=== PATIENT | male | born 1965 | race Caucasian/White ===

== ENCOUNTER 2019-01-19 23:06 | Emergency (ER) | payer BC ==
[2019-01-19] MEDS ORDERED: Sodium Chloride 0.9% 10 ML Syringe FLUSH PRN (23:07)
[2019-01-19] MEDS ORDERED: Aspirin 81 MG Tab.Chew PO ONE (23:08)
[2019-01-19] MEDS ORDERED: HYDROmorphone 1 MG/ML Syringe IVPUSH ONE ×4 (23:12→23:34)
[2019-01-19] MEDS ORDERED: Ondansetron 4 MG/2 ML SDV IVPUSH ONE ×2 (23:12→23:36)
[2019-01-19] MEDS ORDERED: Lactated Ringers 1,000 ML IV SCH (23:15)
--- NOTE | 2019-01-19 23:19 | EDM.PDOC ---
ED HPI GENERAL MEDICAL PROBLEM - General Chief Complaint: Chest Pain Stated Complaint: CHEST PAIN, ABD PAIN Time Seen by Provider: 01/19/19 23:10 Source of Information: Reports: Patient, Old Records History Limitations: Reports: No Limitations - History of Present Illness INITIAL COMMENTS - FREE TEXT/NARRATIVE: 53 yo male with a hx of gastric bypass presents with band-like pain across his lower chest/upper abdomen associated with nausea, but no vomiting. He feels mildly SOB. Has had mild pain like this for a couple weeks, but tonight is much worse. He has not to date sought medical care for this. He has also had his gallbladder surgically removed. Here with his . He has chronic back issues and was attributing his sx's to his back until tonight. Onset: Gradual, Other (over a couple weeks with an abrupt worsening tonight. ) Duration: Week(s): (2, although much worse tonight.), Constant Location: Reports: Chest (lower), Abdomen (upper) Quality: Reports: Pressure Severity: Severe Improves with: Reports: None Worsens with: Reports: None Context: Reports: Other (See HPI) Associated Symptoms: Reports: Chest Pain (lower chest tightness), Nausea/ Vomiting (no vomiting), Shortness of Breath (mild). 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 Denies: Wheezing, Pleuritic Chest Pain, Cough, Sputum, Hemoptysis Cardiovascular: Reports: Chest Pain (lower chest tightness), Edema (L leg with mild edema below the knee.) Endocrine: Reports: No Symptoms GI/Abdominal: Reports: Abdominal Pain (epigastric pressure), Nausea. Denies: Black Stool, Bloody Stool, Constipation, Diarrhea, Decreased Appetite, Distension, Flatus, Hematemesis, Hematochezia, Melena, Vomiting : Reports: No Symptoms Musculoskeletal: Reports: No Symptoms Skin: Reports: No Symptoms Neurological: Reports: No Symptoms Psychiatric: Reports: No Symptoms ED EXAM, GI/ABD - Physical Exam Exam: See Below Exam Limited By: No Limitations General Appearance: Alert, WD/WN, Moderate Distress, Obese Eyes: Bilateral: Normal Appearance Ears: Normal External Exam, Normal Canal, Hearing Grossly Normal Nose: Normal Inspection, No Blood Throat/Mouth: Normal Inspection, Normal Lips, Normal Oropharynx, Normal Voice, No Airway Compromise Head: Atraumatic, Normocephalic Neck: Normal Inspection Respiratory/Chest: No Respiratory Distress, Lungs Clear, Normal Breath Sounds, No Accessory Muscle Use GI/Abdominal Exam: Soft, Tender (epigastrium), Abnormal Bowel Sounds (decreased) , Other (obese with a larger vertical midline surgical scar. ). No: Normal Bowel Sounds, Non-Tender, No Distention, Distended, Guarding, Rigid, Rebound Extremities: Normal Inspection, Normal Range of Motion, Non-Tender Neurological: Alert, Oriented, CN II-XII Intact, Normal Cognition, No Motor/ Sensory Deficits Psychiatric: Normal Affect, Normal Mood Skin Exam: Warm, Dry, Intact, Normal Color, No Rash, Other (large scar vertically in midline of abd from surgery in remote past. ) EKG INTERPRETATION EKG Date: 01/19/19 Time: 23:05 Rhythm: NSR Rate (Beats/Min): 72 [place]: RAD-Right [place] Deviation P-Wave: Present QRS: Normal ST-T: Normal QT: Normal Comparison: NA - No Prior EKG EKG Interpretation Comments: No acute changes. Course - Vital Signs Text/Narrative:: Dr. Harman Hernandez called @ 1:22a Last Recorded V/S: Last Vital Signs Temp 35.9 C 01/19/19 23:18 Pulse 67 01/20/19 00:49 Resp 12 01/20/19 00:49 BP 127/77 01/20/19 00:49 Pulse Ox 99 01/20/19 00:49 - Orders/Labs/Meds Orders: Active Orders 24 hr Category Date Time Status Cardiac Monitoring [RC] .As Directed Care 01/19/19 23:06 Active EKG Documentation Completion [RC] ASDIRECTED Care 01/19/19 23:06 Active UA W/MICROSCOPIC [URIN] Stat Lab 01/19/19 23:07 Ordered Lactated Ringers [Ringers, Lactated] 1,000 ml Med 01/19/19 23:15 Active IV ASDIRECTED Sodium Chloride 0.9% [Saline Flush] Med 01/19/19 23:07 Active 10 ml FLUSH ASDIRECTED PRN Saline Lock Insert [OM.PC] Routine Oth 01/19/19 23:07 Ordered EKG 12 Lead [EK] Routine Ther 01/19/19 23:06 Ordered Medication Orders Lactated Ringer's (Ringers, Lactated) 1,000 mls @ 500 mls/hr IV ASDIRECTED GREGORY Last Admin: 01/19/19 23:17 Dose: 500 mls/hr Sodium Chloride (Saline Flush) 10 ml FLUSH ASDIRECTED PRN PRN Reason: Keep Vein Open Last Admin: 01/19/19 23:18 Dose: 10 ml Labs: Laboratory Tests 01/19/19 01/19/19 01/19/19 Range/Units 23:15 23:15 23:15 WBC 6.7 (4.5-11.0) K/uL RBC 3.97 L (4.30-5.90) M/uL Hgb 11.7 L D (12.0-15.0) g/dL Hct 36.8 L (40.0-54.0) % MCV 93 (80-98) fL MCH 30 (27-31) pg MCHC 32 (32-36) % Plt Count 268 (150-400) K/uL Sodium 139 L (140-148) mmol/L Potassium 4.5 (3.6-5.2) mmol/L Chloride 104 (100-108) mmol/L Carbon Dioxide 26 (21-32) mmol/L Anion Gap 13.5 (5.0-14.0) mmol/L BUN 10 (7-18) mg/dL Creatinine 0.9 (0.8-1.3) mg/dL Est Cr Clr Drug Dosing 108.51 mL/min Estimated GFR (MDRD) > 60 (>60) Glucose 102 (74-106) mg/dL Calcium 9.5 (8.5-10.1) mg/dL Troponin I < 0.017 (0.000-0.056) ng/mL Amylase (25-115) U/L Lipase (73-393) U/L 01/19/19 01/20/19 Range/Units 23:15 00:01 WBC (4.5-11.0) K/uL RBC (4.30-5.90) M/uL Hgb (12.0-15.0) g/dL Hct (40.0-54.0) % MCV (80-98) fL MCH (27-31) pg MCHC (32-36) % Plt Count (150-400) K/uL Sodium (140-148) mmol/L Potassium (3.6-5.2) mmol/L Chloride (100-108) mmol/L Carbon Dioxide (21-32) mmol/L Anion Gap (5.0-14.0) mmol/L BUN (7-18) mg/dL Creatinine (0.8-1.3) mg/dL Est Cr Clr Drug Dosing mL/min Estimated GFR (MDRD) (>60) Glucose (74-106) mg/dL Calcium (8.5-10.1) mg/dL Troponin I (0.000-0.056) ng/mL Amylase 53 (25-115) U/L Lipase 220 (73-393) U/L Meds: Medications Generic Name Dose Route Start Last Admin Trade Name Freq PRN Reason Stop Dose Admin Lactated Ringer's 1,000 mls @ 500 mls/hr 01/19/19 23:15 01/19/19 23:17 Ringers, Lactated IV 500 mls/hr ASDIRECTED GREGORY Administration Sodium Chloride 10 ml 01/19/19 23:07 01/19/19 23:18 Saline Flush FLUSH 10 ml ASDIRECTED PRN Administration Keep Vein Open Discontinued Medications Generic Name Dose Route Start Last Admin Trade Name Freq PRN Reason Stop Dose Admin Aspirin 324 mg 01/19/19 23:08 Aspirin PO 01/19/19 23:09 ONETIME ONE Famotidine 20 mg 01/20/19 00:55 01/20/19 01:05 Pepcid IVPUSH 01/20/19 00:56 20 mg ONETIME ONE Administration Hydromorphone HCl 1 mg 01/19/19 23:12 01/19/19 23:17 Dilaudid IVPUSH 01/19/19 23:13 1 mg ONETIME ONE Administration Hydromorphone HCl 1 mg 01/19/19 23:25 Dilaudid IVPUSH 01/19/19 23:26 ONETIME ONE Hydromorphone HCl 2 mg 01/19/19 23:26 01/19/19 23:29 Dilaudid IVPUSH 01/19/19 23:27 2 mg ONETIME ONE Administration Hydromorphone HCl 1 mg 01/19/19 23:34 01/19/19 23:47 Dilaudid IVPUSH 01/19/19 23:35 1 mg ONETIME ONE Administration Sodium Chloride 85 mls @ 4 mls/sec 01/20/19 00:01 01/20/19 00:13 Normal Saline IV 01/20/19 00:02 4 mls/sec ASDIRECTED STA Administration Iopamidol 150 ml 01/20/19 00:01 01/20/19 00:13 Isovue-300 (61%) IV 01/20/19 00:02 150 ml . DIRECTED STA Administration Ondansetron HCl 4 mg 01/19/19 23:12 01/19/19 23:17 Zofran IVPUSH 01/19/19 23:13 4 mg ONETIME ONE Administration Ondansetron HCl 4 mg 01/19/19 23:36 01/19/19 23:47 Zofran IVPUSH 01/19/19 23:37 4 mg ONETIME ONE Administration - Radiology Interpretation Free Text/Narrative:: CT abd/pelvis with IV contrast-duodenitis vs. early pancreatitis CT Results Date: 01/19/19 Departure - Departure Time of Disposition: 01:30 Disposition: Refer to Observation Condition: Fair Clinical Impression: Epigastric abdominal pain - Discharge Information *PRESCRIPTION DRUG MONITORING PROGRAM REVIEWED*: No *COPY OF PRESCRIPTION DRUG MONITORING REPORT IN PATIENT ELVA: No Referrals: Art Goldberg MD [Primary Care Provider] - Forms: ED Department Discharge - My Orders Last 24 Hours: My Active Orders 01/19/19 23:06 Cardiac Monitoring [RC] .As Directed EKG Documentation Completion [RC] ASDIRECTED EKG 12 Lead [EK] Routine 01/19/19 23:07 UA W/MICROSCOPIC [URIN] Stat Sodium Chloride 0.9% [Saline Flush] 10 ml FLUSH ASDIRECTED PRN Saline Lock Insert [OM.PC] Routine 01/19/19 23:15 Lactated Ringers [Ringers, Lactated] 1,000 ml IV ASDIRECTED - Assessment/Plan Last 24 Hours: My Active Orders 01/19/19 23:06 Cardiac Monitoring [RC] .As Directed EKG Documentation Completion [RC] ASDIRECTED EKG 12 Lead [EK] Routine 01/19/19 23:07 UA W/MICROSCOPIC [URIN] Stat Sodium Chloride 0.9% [Saline Flush] 10 ml FLUSH ASDIRECTED PRN Saline Lock Insert [OM.PC] Routine 01/19/19 23:15 Lactated Ringers [Ringers, Lactated] 1,000 ml IV ASDIRECTED
[2019-01-20] MEDS ORDERED: Iopamidol 612 MG/ML 150 ML Bottle IV STA (00:01)
--- NOTE | 2019-01-20 00:53 | CRLCT ---
INDICATION: For abdominal pain. History of Perla-en-Y TECHNIQUE: CT abdomen and pelvis acquired with IV contrast. COMPARISON: FINDINGS: Lower chest: Unremarkable. Liver: Unremarkable. Spleen: Unremarkable. Pancreas: Small amount of fat stranding adjacent to the pancreatic head. Correlate with abnormal amylase and lipase clinically for pancreatitis.. Gallbladder and bile ducts: Unremarkable. Kidneys: Unremarkable. Adrenal glands: Unremarkable. GI tract: History of Perla-en-Y. Thickening of the 2nd portion the duodenum. Findings may related to duodenitis versus adjacent pancreatitis. Appendix is normal. Vascular structures: Unremarkable. Lymph nodes: Unremarkable. Miscellaneous: Unremarkable. No free air or significant free fluid. Pelvic Organs: Unremarkable. Bones: Unremarkable for age. IMPRESSION: Small amount of fluid and fat stranding adjacent to the pancreatic head. Correlate with amylase and lipase for pancreatitis. Mild thickening of the adjacent 2nd portion the duodenum which may be related to duodenitis or adjacent pancreatitis. Dictated by Art Acosta MD @ 01/20/2019 12:51:51 AM Please note that all CT scans at this facility use dose modulation, iterative reconstruction, and/or weight-based dosing when appropriate to reduce radiation dose to as low as reasonably achievable. Dictated by: Art Acosta MD @ 01/20/2019 00:51:57 (Electronically Signed)
[2019-01-20] MEDS ORDERED: Famotidine 20 MG/2 ML SDV IVPUSH ONE (00:55)
[2019-01-20] MEDS ORDERED: Ondansetron 4 MG/2 ML SDV IVPUSH PRN (02:49)
[2019-01-20] MEDS ORDERED: HYDROmorphone 1 MG/ML Syringe IVPUSH PRN (02:49)
[2019-01-20] MEDS: Dextrose 5%-Lactated Ringers 1,000 ML IV SCH ×2 (03:00→09:51)
[2019-01-20] MEDS ORDERED: fentaNYL 100 MCG/2 ML SDV ONE (08:03)
[2019-01-20] MEDS ORDERED: Propofol 200 MG/20 ML SDV ONE (08:03)
[2019-01-20] MEDS ORDERED: Midazolam 1 MG/ML 2 ML SDV ONE (08:03)
--- NOTE | 2019-01-20 08:18 | PCM.HP ---
H&P History of Present Illness - General Date of Service: 01/20/19 Admit Problem/Dx: Admission Diagnosis/Problem Admission Diagnosis/Problem Abdominal pain Source of Information: Patient History Limitations: Reports: No Limitations - History of Present Illness Initial Comments - Free Text/Narative: Pt states he has been having upper abdominal pain for roughly 2 weeks and last night it suddenly worsened to 9/10 pain. He describes the pain as a squeezing that wraps around his upper abdomen. He does mention that the pain did radiate to his left shoulder and both his arms felt heavy. Mildly SOB due to pain with inspiration. Nauseated but no vomiting. Nothing made the pain better or worse. Was given Aspirin, Pepcid, Dilaudid, Zofran in the ED. Pt states pain is now well controlled at a 2/10. History of HTN, cholecystectomy, gastric bypass, back surgery. 2-3 beers daily. Denies any tobacco, or illicit drug use. States strong family history of cardiac disease. Onset of Symptoms: Reports: Sudden Symptom Onset Date: 01/19/19 (Pt has had mild to moderate pain but had acute exacerbation last night) Duration of Symptoms: Reports: Constant, Getting Worse Location: Reports: Chest, Abdomen, Radiates to (left shoulder) Quality: Reports: Pressure Severity: Severe Improves with: Reports: None Worsens with: Reports: Breathing Context: Reports: Other Associated Symptoms: Reports: Chest Pain (chest pressure), Nausea/Vomiting (no vomiting), Shortness of Breath (increase pain with inhalation ), Other (denies diaphoresis, palpitations, fever/chills, cough, ) Chest Pain Score (Numeric/FACES): 2 - Related Data Allergies/Adverse Reactions: Allergies Allergy/AdvReac Type Severity Reaction Status Date / Time No Known Allergies Allergy Verified 01/20/19 02:22 Home Medications: Home Meds Metaxalone 800 mg PO TID 01/19/19 [History] diazePAM [Valium] 10 mg PO Q4H 01/19/19 [History] Past Medical History HEENT History: Reports: Impaired Vision Cardiovascular History: Reports: Hypertension Respiratory History: Reports: Sleep Apnea Gastrointestinal History: Reports: None Musculoskeletal History: Reports: None Other Musculoskeletal History: DJD Neurological History: Reports: Migraines - Past Surgical History HEENT Surgical History: Reports: None Cardiovascular Surgical History: Reports: None Respiratory Surgical History: Reports: None GI Surgical History: Reports: Bariatric Procedure, Cholecystectomy Other GI Surgeries/Procedures: RNY 20 years ago Neurological Surgical History: Reports: Other (See Below) Other Neurological Surgeries/Procedures: disc removal Musculoskeletal Surgical History: Reports: Other (See Below) Other Musculoskeletal Surgeries/Procedures:: Back surgery Social & Family History - Tobacco Use Smoking Status *Q: Former Smoker Used Tobacco, but Quit: Yes Month/Year Tobacco Last Used: 11/1999 Second Hand Smoke Exposure: No - Caffeine Use Caffeine Use: Reports: None - Alcohol Use Days Per Week of Alcohol Use: 7 Number of Drinks Per Day: 2 Total Drinks Per Week: 14 Date of Last Drink: 01/19/19 Time of Last Drink: 23:00 - Recreational Drug Use Recreational Drug Use: No H&P Review of Systems - Review of Systems: Review Of Systems: See Below General: Reports: No Symptoms HEENT: Reports: No Symptoms Pulmonary: Reports: Shortness of Breath (mild, pain with inspiration ) Cardiovascular: Reports: Chest Pain (sternal, lower chest pain that ) Gastrointestinal: Reports: Abdominal Pain, Nausea. Denies: Bloody Stool, Constipation, Diarrhea, Distension, Vomiting Genitourinary: Reports: No Symptoms Musculoskeletal: Reports: No Symptoms Skin: Reports: No Symptoms Psychiatric: Reports: No Symptoms Neurological: Reports: No Symptoms Hematologic/Lymphatic: Reports: No Symptoms Exam - Exam Exam: Not Obtained (Pt left for EGD) - Vital Signs Vital Signs: Last Vital Signs Temp 35.8 C 01/20/19 07:32 Pulse 57 L 01/20/19 07:32 Resp 16 01/20/19 07:32 BP 119/74 01/20/19 07:32 Pulse Ox 98 01/20/19 07:32 Weight: 145.15 kg - Exam General: Alert, Oriented, Cooperative Physical Exam Comments:: Not done; pt left for EGD - Patient Data Lab Results Last 24 hrs: Laboratory Results - last 24 hr 01/19/19 01/19/19 01/19/19 Range/Units 23:15 23:15 23:15 WBC 6.7 (4.5-11.0) K/uL RBC 3.97 L (4.30-5.90) M/uL Hgb 11.7 L D (12.0-15.0) g/dL Hct 36.8 L (40.0-54.0) % MCV 93 (80-98) fL MCH 30 (27-31) pg MCHC 32 (32-36) % Plt Count 268 (150-400) K/uL Sodium 139 L (140-148) mmol/L Potassium 4.5 (3.6-5.2) mmol/L Chloride 104 (100-108) mmol/L Carbon Dioxide 26 (21-32) mmol/L Anion Gap 13.5 (5.0-14.0) mmol/L BUN 10 (7-18) mg/dL Creatinine 0.9 (0.8-1.3) mg/dL Est Cr Clr Drug Dosing 108.51 mL/min Estimated GFR (MDRD) > 60 (>60) Glucose 102 (74-106) mg/dL Calcium 9.5 (8.5-10.1) mg/dL Phosphorus (2.5-4.9) mg/dL Magnesium (1.8-2.4) mg/dL Total Bilirubin (0.2-1.0) mg/dL AST (15-37) U/L ALT (12-78) U/L Alkaline Phosphatase (46-116) U/L Troponin I < 0.017 (0.000-0.056) ng/mL Total Protein (6.4-8.2) g/dL Albumin (3.4-5.0) g/dL Globulin (2.3-3.5) g/dL Albumin/Globulin Ratio (1.2-2.2) Amylase (25-115) U/L Lipase (73-393) U/L Urine Color Urine Appearance Urine pH (4.5-8.0) Ur Specific [place] (1.008-1.030) Urine Protein (NEGATIVE) mg/dL Urine Glucose (UA) (NEGATIVE) mg/dL Urine Ketones (NEGATIVE) mg/dL Urine Occult Blood (NEGATIVE) Urine Nitrite (NEGAITVE) Urine Bilirubin (NEGATIVE) Urine Urobilinogen (NORMAL) mg/dL Ur Leukocyte Esterase (NEGATIVE) Urine RBC (0-5) Urine WBC (0-5) Ur Epithelial Cells Amorphous Sediment Urine Bacteria Urine Mucus 01/19/19 01/20/19 01/20/19 Range/Units 23:15 00:01 02:17 WBC (4.5-11.0) K/uL RBC (4.30-5.90) M/uL Hgb (12.0-15.0) g/dL Hct (40.0-54.0) % MCV (80-98) fL MCH (27-31) pg MCHC (32-36) % Plt Count (150-400) K/uL Sodium (140-148) mmol/L Potassium (3.6-5.2) mmol/L Chloride (100-108) mmol/L Carbon Dioxide (21-32) mmol/L Anion Gap (5.0-14.0) mmol/L BUN (7-18) mg/dL Creatinine (0.8-1.3) mg/dL Est Cr Clr Drug Dosing mL/min Estimated GFR (MDRD) (>60) Glucose (74-106) mg/dL Calcium (8.5-10.1) mg/dL Phosphorus (2.5-4.9) mg/dL Magnesium (1.8-2.4) mg/dL Total Bilirubin (0.2-1.0) mg/dL AST (15-37) U/L ALT (12-78) U/L Alkaline Phosphatase (46-116) U/L Troponin I (0.000-0.056) ng/mL Total Protein (6.4-8.2) g/dL Albumin (3.4-5.0) g/dL Globulin (2.3-3.5) g/dL Albumin/Globulin Ratio (1.2-2.2) Amylase 53 (25-115) U/L Lipase 220 (73-393) U/L Urine Color Yellow Urine Appearance Clear Urine pH 5.0 (4.5-8.0) Ur Specific [place] 1.015 (1.008-1.030) Urine Protein Negative (NEGATIVE) mg/dL Urine Glucose (UA) Normal (NEGATIVE) mg/dL Urine Ketones Negative (NEGATIVE) mg/dL Urine Occult Blood Negative (NEGATIVE) Urine Nitrite Negative (NEGAITVE) Urine Bilirubin Negative (NEGATIVE) Urine Urobilinogen Normal (NORMAL) mg/dL Ur Leukocyte Esterase Negative (NEGATIVE) Urine RBC Not seen (0-5) Urine WBC 0-5 (0-5) Ur Epithelial Cells Rare Amorphous Sediment Not seen Urine Bacteria Not seen Urine Mucus Not seen 01/20/19 01/20/19 01/20/19 Range/Units 07:11 07:11 07:11 WBC 4.7 (4.5-11.0) K/uL RBC 3.52 L (4.30-5.90) M/uL Hgb 10.3 L (12.0-15.0) g/dL Hct 33.1 L (40.0-54.0) % MCV 94 (80-98) fL MCH 29 (27-31) pg MCHC 31 L (32-36) % Plt Count 217 (150-400) K/uL Sodium 140 (140-148) mmol/L Potassium 4.2 (3.6-5.2) mmol/L Chloride 106 (100-108) mmol/L Carbon Dioxide 29 (21-32) mmol/L Anion Gap 5.0 (5.0-14.0) mmol/L BUN 8 (7-18) mg/dL Creatinine 0.8 (0.8-1.3) mg/dL Est Cr Clr Drug Dosing 123.83 mL/min Estimated GFR (MDRD) > 60 (>60) Glucose 107 H (74-106) mg/dL Calcium 8.4 L (8.5-10.1) mg/dL Phosphorus 3.7 (2.5-4.9) mg/dL Magnesium 2.0 (1.8-2.4) mg/dL Total Bilirubin 0.2 (0.2-1.0) mg/dL AST 17 (15-37) U/L ALT 17 (12-78) U/L Alkaline Phosphatase 56 (46-116) U/L Troponin I (0.000-0.056) ng/mL Total Protein 5.6 L (6.4-8.2) g/dL Albumin 2.8 L (3.4-5.0) g/dL Globulin 2.8 (2.3-3.5) g/dL Albumin/Globulin Ratio 1.0 L (1.2-2.2) Amylase 43 (25-115) U/L Lipase 136 (73-393) U/L Urine Color Urine Appearance Urine pH (4.5-8.0) Ur Specific [place] (1.008-1.030) Urine Protein (NEGATIVE) mg/dL Urine Glucose (UA) (NEGATIVE) mg/dL Urine Ketones (NEGATIVE) mg/dL Urine Occult Blood (NEGATIVE) Urine Nitrite (NEGAITVE) Urine Bilirubin (NEGATIVE) Urine Urobilinogen (NORMAL) mg/dL Ur Leukocyte Esterase (NEGATIVE) Urine RBC (0-5) Urine WBC (0-5) Ur Epithelial Cells Amorphous Sediment Urine Bacteria Urine Mucus Result Diagrams: 01/20/19 07:11 01/20/19 07:11 - Problem List (1) Epigastric abdominal pain SNOMED Code(s): 70967867 ICD Code: R10.13 - EPIGASTRIC PAIN Status: Acute Current Visit: Yes Problem List Initiated/Reviewed/Updated: Yes Orders Last 24hrs: Active Orders 24 hr Category Date Time Status Admission Status [Patient Status] [ADT] Routine ADT 01/20/19 01:26 Active Verify Patient Consent Obtain [RC] ASDIRECTED Care 01/20/19 08:30 Active NPO [Nothing Per Oral Diet] [DIET] Diet 01/20/19 Breakfast Active Dextrose 5%-Lactated Ringers 1,000 ml Med 01/20/19 03:00 Active IV ASDIRECTED Glycopyrrolate Med 01/20/19 08:30 Once 0.4 mg IVPUSH ONETIME ONE HYDROmorphone [Dilaudid] Med 01/20/19 02:49 Active 1 mg IVPUSH Q1H PRN Lactated Ringers [Ringers, Lactated] 1,000 ml Med 01/19/19 23:15 Active IV ASDIRECTED Ondansetron [Zofran] Med 01/20/19 02:49 Active 4 mg IVPUSH Q4H PRN Pantoprazole [ProTONIX IV] Med 01/20/19 08:30 Active 40 mg IVPUSH Q12H Sodium Chloride 0.9% [Saline Flush] Med 01/19/19 23:07 Active 10 ml FLUSH ASDIRECTED PRN Saline Lock Insert [OM.PC] Routine Oth 01/19/19 23:07 Ordered EKG 12 Lead [EK] Routine Ther 01/19/19 23:06 Ordered Medication Orders Glycopyrrolate (Glycopyrrolate) 0.4 mg IVPUSH ONETIME ONE Stop: 01/20/19 08:31 Hydromorphone HCl (Dilaudid) 1 mg IVPUSH Q1H PRN PRN Reason: Pain Lactated Ringer's (Ringers, Lactated) 1,000 mls @ 500 mls/hr IV ASDIRECTED GREGORY Last Admin: 01/19/19 23:17 Dose: 500 mls/hr Dextrose/Lactated Ringer's (Dextrose 5%-Lactated Ringers) 1,000 mls @ 125 mls/ hr IV ASDIRECTED [facility] Last Admin: 01/20/19 03:00 Dose: 125 mls/hr Ondansetron HCl (Zofran) 4 mg IVPUSH Q4H PRN PRN Reason: Nausea/Vomiting Pantoprazole Sodium (Protonix Iv) 40 mg IVPUSH Q12H [facility] Sodium Chloride (Saline Flush) 10 ml FLUSH ASDIRECTED PRN PRN Reason: Keep Vein Open Last Admin: 01/19/19 23:18 Dose: 10 ml Assessment/Plan Comment:: 1. Epigastric pain. EGD today.
[2019-01-20] MEDS ORDERED: Pantoprazole 40 MG Vial IVPUSH SCH (08:30)
[2019-01-20] MEDS ORDERED: Glycopyrrolate 0.2 MG/ML 2 ML SDV IVPUSH ONE (08:30)
[2019-01-20] MEDS ORDERED: Dextrose 5%-Lactated Ringers 1,000 ML IV SCH (12:15)
[2019-01-21 07:21] VITALS: BP 140/92
--- NOTE | 2019-01-21 13:40 | DISCH ---
ADMISSION DIAGNOSES: 1. Epigastric abdominal pain, status post Perla-en-Y gastric bypass surgery. 2. Right-sided thoracic back pain. 3. Sciatica, right side, associated with disorder of lumbosacral spine. DISCHARGE DIAGNOSIS: EGD on 01/20/2019, Husam Hernandez MD; showing mild gastritis and duodenitis. HISTORY: Jaron Connors was admitted to the hospital through the emergency room on 01/19/2019, for a band-like pain across lower chest and upper abdomen associated with nausea. He said the pain had been going on for a couple of weeks. No other associated signs and symptoms other than nausea. He had an EGD on 01/20/2019, was started on Protonix 40 mg b.i.d. and pain improved. He was able to be discharged to home on 01/21/2019. REVIEW OF SYSTEMS: HEENT: Negative. RESPIRATORY/CARDIOVASCULAR: No shortness of breath, fast or irregular heartbeat. No cough. ENDOCRINE: Negative. GI: Abdominal pain resolved. Last BM was today. : Negative. MUSCULOSKELETAL: Chronic back pain. SKIN: Without rash. NEURO: No loss of coordination, numbness or tingling of extremities. PSYCHIATRIC: Negative. Remainder of review of systems negative for any pertinent positives and negatives. OBJECTIVE: GENERAL: Clay Connors is a 53-year-old male. VITAL SIGNS: Height is 6 feet 1.62 inches. Weight is 320 pounds. BMI is 41.5. TPR is 96.8, 59, 18, and blood pressure 140/92. It had been running 107 to 133 and diastolic 70 to 88. HEENT: Negative. NECK: Supple. HEART: Regular rate and rhythm. LUNGS: Clear. ABDOMEN: Soft and nontender. EXTREMITIES: Negative. : Deferred. NEURO: Intact. PSYCHIATRIC: Mood and affect appropriate. SKIN: Without rash. DISPOSITION: Discharged to home. CONDITION: Stable and improving. FOLLOWUP APPOINTMENT: With Joellen De La Torre PA-C, on 01/26/2019, at 9:30 a.m. It has been several years since he has had a weight loss surgery followup and labs will be drawn at that time. HOME MEDICATIONS: Protonix 40 mg oral twice daily for two months and then to take once daily. He is to resume home medication of metaxalone 800 mg oral 3 times a day and Valium 10 mg every 4 hours p.r.n. DIET: Usual diet as tolerated. Dietitian will see him at clinic followup appointment. Drink 8 to 10 glasses of water a day. ACTIVITY: As tolerated. DISCHARGE INSTRUCTIONS: Notify provider if any fever, increased pain, nausea, or vomiting.
--- NOTE | 2019-01-25 16:11 | OR ---
DATE OF PROCEDURE: 01/20/2019 PREOPERATIVE DIAGNOSIS: Recurrent episodes of upper abdominal pain. POSTOPERATIVE DIAGNOSES: Recurrent episodes of upper abdominal pain with normal upper gastrointestinal endoscopic exam, status post Perla-en-Y gastric bypass. OPERATIVE PROCEDURE: Upper gastrointestinal endoscopy with biopsy of gastric pouch for CLOtest. ANESTHESIA: IV sedation. INDICATION FOR PROCEDURE: This is a 53-year-old status post Perla-en-Y gastric bypass many years ago, presenting with some episodes of epigastric pain radiating to his back. He presently has not been on any antisecretory medications. A CT scan obtained at the time of admission showed some thickening of the antrum and duodenum along with some fluid around that suggestive of either of gastritis/duodenitis and/or small amount of pancreatitis. Of note, his pancreatic enzymes, amylase and lipase have been normal both on admission as well as on repeat tests this morning, and there was no evidence of pancreatic calcifications, i.e., no evidence of chronic pancreatitis. The plan is to proceed with upper GI endoscopy knowing that we will not visualize the antrum or duodenum with this exam. Potential risks of the procedure including bleeding and perforation were discussed, and the patient wishes to proceed. DETAILS OF PROCEDURE: The patient was taken to the operating room, placed in a left lateral decubitus position. IV sedation was administered after which the upper GI endoscope was passed orally through the length of esophagus into the gastric pouch and from there through the gastrojejunostomy to roughly 20 cm into the Perla limb. Overall, this examination was entirely normal. There were no areas of narrowing or mucosal inflammation throughout the length of exam. Biopsies were obtained from the gastric pouch and sent for CLOtest for H. pylori. Minimal bleeding from the biopsy sites was seen, and the procedure was then concluded. The patient was taken to the recovery room in satisfactory condition. At this point, the plan will be to continue patient on IV Protonix. I think we will initiate a diet to see how he does with that. This is a case where the treatment of the potential gastritis and duodenitis with agent such as Protonix may help in terms of the diagnosis. If this settles down his symptoms, we are probably dealing with antral gastritis and/or duodenitis. The biopsies of the pouch for CLOtest for H. pylori may be significantly not very sensitive. Given this, we will also obtain a left serial H. pylori today. Husam Hernandez MD /[id number]
== END 2019-01-21 08:56 | disposition home or self-care (01) ==
LOC: JP.ED 23:06 → JP.MS 01-20 01:26
PROVIDERS: ADMIT Surgery; ATTEND Surgery
DX: R10.13 Epigastric pain (principal); Z79.899 Other long term (current) drug therapy; Z98.84 Bariatric surgery status
CPT/HCPCS: 36415; 43239; 74177; 80048; 80053; 81001; 82150; 83690; 83735; 84100; 84484; 85027; 87081; 93005; 96361; 96374; 96375; 99285; C9113; J1170; J2250; J2405; J2704; J3010; J3490; J7030; J7042; J7120

== ENCOUNTER 2019-11-27 20:56 | Emergency (ER) | payer BC ==
[2019-11-27 21:17] VITALS: BP 138/93; PULSE 100
[2019-11-27] MEDS ORDERED: Bupivacaine 0.5%/EPINEPHrine 1:200,000 1.8 ML Cartridge INJECT ONE ×3 (21:32→22:28)
--- NOTE | 2019-11-27 21:40 | EDM.PDOC ---
ED HPI GENERAL MEDICAL PROBLEM - General Chief Complaint: ENT Problem Stated Complaint: LEFT SIDE JAW, EAR PAIN, TOOTH EXTRACTION Time Seen by Provider: 11/27/19 21:20 Source of Information: Reports: Patient, Old Records History Limitations: Reports: No Limitations - History of Present Illness INITIAL COMMENTS - FREE TEXT/NARRATIVE: 54 yo male had a molar extracted from his L mandible on Friday. Since the anesthetic wore off he has been in a lot of pain. Was not given anything for pain. Denies fever. No facial swelling. Can't sleep due to the pain. 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: Other (see below) (Cold water application) - Related Data Allergies Allergy/AdvReac Type Severity Reaction Status Date / Time No Known Allergies Allergy Verified 11/27/19 21:24 Home Meds: Home Meds Metaxalone 800 mg PO TID 01/19/19 [History] diazePAM [Valium] 10 mg PO Q4H 01/19/19 [History] Pantoprazole [ProTONIX Granules] 40 mg PO BID #120 cap 01/21/19 [Rx] Past Medical History HEENT History: Reports: Impaired Vision Cardiovascular History: Reports: Hypertension Respiratory History: Reports: Sleep Apnea Gastrointestinal History: Reports: None Musculoskeletal History: Reports: None Other Musculoskeletal History: DJD Neurological History: Reports: Migraines - Past Surgical History HEENT Surgical History: Reports: None Cardiovascular Surgical History: Reports: None Respiratory Surgical History: Reports: None GI Surgical History: Reports: Bariatric Procedure, Cholecystectomy Other GI Surgeries/Procedures: RNY 20 years ago Neurological Surgical History: Reports: Other (See Below) Other Neurological Surgeries/Procedures: disc removal Musculoskeletal Surgical History: Reports: Other (See Below) Other Musculoskeletal Surgeries/Procedures:: Back surgery Social & Family History - Tobacco Use Smoking Status *Q: Never Smoker - Caffeine Use Caffeine Use: Reports: None ED ROS ENT - Review of Systems Review Of Systems: See Below Constitutional: Reports: No Symptoms HEENT: Reports: Dental Pain (L mandible) Respiratory: Reports: No Symptoms Cardiovascular: Reports: No Symptoms Skin: Reports: No Symptoms Neurological: Reports: No Symptoms ED EXAM, ENT - Physical Exam Exam: See Below Exam Limited By: No Limitations General Appearance: Alert, WD/WN, No Apparent Distress Eye Exam: Bilateral Eye: Normal Inspection Ears: Normal External Exam, Normal Canal, Hearing Grossly Normal Nose: Normal Inspection, No Blood Mouth/Throat: Normal Lips, Normal Oropharynx, Other (There is a molar recently extracted from the L mandible. There is some food impacted in the socket. No apparent facial swelling. ) Head: Atraumatic, Normocephalic Neck: Normal Inspection, Supple, Non-Tender. No: Lymphadenopathy (R), Lymphadenopathy (L) Respiratory/Chest: No Respiratory Distress, No Accessory Muscle Use Cardiovascular: Regular Rate, Rhythm Neurological: Alert, Oriented, CN II-XII Intact, Normal Cognition, No Motor/ Sensory Deficits Psychiatric: Normal Affect, Normal Mood Skin: Warm, Dry, Intact, Normal Color, No Rash ED ENT PROCEDURES - Additional/Other Procedure(s) Other (Free Text) Procedure(s): Submandibular nerve block with 1.8 ml of 0.5% bupivacaine with epi x 2 Course - Vital Signs Text/Narrative:: Minimal relief with meds given in the ER. Last Recorded V/S: Last Vital Signs Temp 35.9 C 11/27/19 21:29 Pulse 100 11/27/19 21:29 Resp 16 11/27/19 21:29 BP 138/93 H 11/27/19 21:29 Pulse Ox 98 11/27/19 21:29 - Orders/Labs/Meds Orders: Active Orders 24 hr Category Date Time Status Acetaminophen/oxyCODONE [Percocet 325-5 MG] Med 11/27/19 22:56 Stat 1 tab PO ONETIME STA Meds: Medications Discontinued Medications Generic Name Dose Route Start Last Admin Trade Name Freq PRN Reason Stop Dose Admin Bupivacaine HCl/Epinephrine Bitart 1.8 ml 11/27/19 21:32 11/27/19 21:38 Marcaine 0.5%/Epinephrine 1:200,000 INJECT 11/27/19 21:33 1.8 ml ONETIME ONE Administration Bupivacaine HCl/Epinephrine Bitart 1.8 ml 11/27/19 21:56 11/27/19 22:13 Marcaine 0.5%/Epinephrine 1:200,000 INJECT 11/27/19 21:57 1.8 ml ONETIME ONE Administration Bupivacaine HCl/Epinephrine Bitart 1.8 ml 11/27/19 22:28 11/27/19 22:34 Marcaine 0.5%/Epinephrine 1:200,000 INJECT 11/27/19 22:29 1.8 ml ONETIME ONE Administration Ketorolac Tromethamine 60 mg 11/27/19 22:14 11/27/19 22:20 Toradol IM 11/27/19 22:15 60 mg ONETIME ONE Administration Oxycodone/Acetaminophen 1 tab 11/27/19 22:15 11/27/19 22:20 Percocet 325-5 Mg PO 11/27/19 22:16 1 tab ONETIME STA Administration Penicillin V Potassium 500 mg 11/27/19 21:47 11/27/19 22:13 Veetids PO 11/27/19 21:48 500 mg ONETIME ONE Administration Departure - Departure Time of Disposition: 23:10 Disposition: Home, Self-Care 01 Condition: Fair Clinical Impression: Dry socket - Discharge Information *PRESCRIPTION DRUG MONITORING PROGRAM REVIEWED*: No *COPY OF PRESCRIPTION DRUG MONITORING REPORT IN PATIENT ELVA: No Instructions: Dental Dry Socket, [id number] Referrals: Art Goldberg MD [Primary Care Provider] - Forms: ED Department Discharge Additional Instructions: Rinse your mouth with luke warm salt water after eating anything. Take ibuprofen 600 mg every 6 hrs with food starting after 4 am tonight. Add either acetaminophen or Percocet for added pain relief. Take Penicillin every 6 hrs. See your dentist early in the week if symptoms persist. Sepsis Event Note - Evaluation Sepsis Screening Result: No Definite Risk - Focused Exam Vital Signs: Vital Signs Temp Pulse Resp BP Pulse Ox 11/27/19 21:29 35.9 C 100 16 138/93 H 98 11/27/19 21:15 35.9 C 100 16 138/93 H 98 Date Exam was Performed: 11/27/19 Time Exam was Performed: 22:56 - My Orders Last 24 Hours: My Active Orders 11/27/19 22:56 Acetaminophen/oxyCODONE [Percocet 325-5 MG] 1 tab PO ONETIME STA - Assessment/Plan Last 24 Hours: My Active Orders 11/27/19 22:56 Acetaminophen/oxyCODONE [Percocet 325-5 MG] 1 tab PO ONETIME STA
[2019-11-27] MEDS ORDERED: Penicillin V Potassium 250 MG Tab PO ONE (21:47)
[2019-11-27] MEDS ORDERED: Ketorolac 60 MG/2 ML SDV IM ONE (22:14)
[2019-11-27] MEDS ORDERED: Acetaminophen/oxyCODONE 325-5 MG Tab PO STA ×2 (22:15→22:56)
== END 2019-11-27 23:05 | disposition home or self-care (01) ==
LOC: JP.ED 20:56
DX: M27.3 Alveolitis of jaws (principal); I10 Essential (primary) hypertension; Z79.899 Other long term (current) drug therapy
CPT/HCPCS: 64400; 96372; 99283; A9270; J1885; J3490

== ENCOUNTER 2019-11-28 08:18 | Emergency (ER) | payer BC ==
[2019-11-28 08:35] VITALS: BP 166/96; PULSE 69
[2019-11-28] MEDS ORDERED: HYDROmorphone 1 MG/ML Syringe IM ONE (08:44)
--- NOTE | 2019-11-28 08:49 | EDM.PDOC ---
ED HPI GENERAL MEDICAL PROBLEM - General Chief Complaint: ENT Problem Stated Complaint: TOOTH PAIN - LEFT SIDE Time Seen by Provider: 11/28/19 08:19 Source of Information: Reports: Patient, Family, Old Records, RN Notes Reviewed History Limitations: Reports: No Limitations - History of Present Illness INITIAL COMMENTS - FREE TEXT/NARRATIVE: 54-year-old gentleman presents the emergency department today with complaint of pain control, 1 week ago he did have a dental extraction which was difficult. Was placed on antibiotics of penicillin which she is taking was evaluated in the emergency department yesterday for dental pain. Please see note for details. Was treated with submandibular injection for pain control and he states it did not provide any relief. He was provided Percocet for pain he also admits this is not provided any pain control Tooth/Teeth Pain Score (Numeric/FACES): 10 - Related Data Allergies Allergy/AdvReac Type Severity Reaction Status Date / Time No Known Allergies Allergy Verified 11/28/19 08:35 Home Meds: Home Meds Metaxalone 800 mg PO TID 01/19/19 [History] diazePAM [Valium] 10 mg PO Q4H 01/19/19 [History] Pantoprazole [ProTONIX Granules] 40 mg PO BID #120 cap 01/21/19 [Rx] Acetaminophen/oxyCODONE [Percocet 325-5 MG] 1 - 2 tab PO Q4H 11/28/19 [History] Penicillin V Potassium 1 tab PO QID 11/28/19 [History] Past Medical History HEENT History: Reports: Impaired Vision Cardiovascular History: Reports: Hypertension Respiratory History: Reports: Sleep Apnea Other Musculoskeletal History: DJD Neurological History: Reports: Migraines - Past Surgical History GI Surgical History: Reports: Bariatric Procedure, Cholecystectomy Other GI Surgeries/Procedures: RNY 20 years ago Neurological Surgical History: Reports: Other (See Below) Other Neurological Surgeries/Procedures: disc removal Musculoskeletal Surgical History: Reports: Other (See Below) Other Musculoskeletal Surgeries/Procedures:: Back surgery Social & Family History - Tobacco Use Smoking Status *Q: Never Smoker - Caffeine Use Caffeine Use: Reports: None - Alcohol Use Days Per Week of Alcohol Use: 3 Number of Drinks Per Day: 3 Total Drinks Per Week: 9 - Recreational Drug Use Recreational Drug Use: No ED ROS ENT - Review of Systems Review Of Systems: See Below Constitutional: Reports: No Symptoms HEENT: Reports: Dental Pain Respiratory: Reports: No Symptoms Cardiovascular: Reports: No Symptoms ED EXAM, ENT - Physical Exam Exam: See Below Exam Limited By: No Limitations General Appearance: Alert, Mild Distress Mouth/Throat: Normal Inspection, Normal Lips, Normal Oropharynx, Dental Pain, Dental Tenderness Respiratory/Chest: No Respiratory Distress Course - Vital Signs Last Recorded V/S: Last Vital Signs Temp 95.4 F 11/28/19 08:32 Pulse 69 11/28/19 08:32 Resp 20 11/28/19 08:32 BP 166/96 H 11/28/19 08:32 Pulse Ox 98 11/28/19 08:32 - Orders/Labs/Meds Meds: Medications Discontinued Medications Generic Name Dose Route Start Last Admin Trade Name Miroslava PRN Reason Stop Dose Admin Fentanyl 50 mcg 11/28/19 09:14 11/28/19 10:09 Sublimaze NASBOTH 11/28/19 09:15 50 mcg ONETIME ONE Administration Hydromorphone HCl 1 mg 11/28/19 08:44 11/28/19 08:52 Dilaudid IM 11/28/19 08:45 1 mg ONETIME ONE Administration Ketamine HCl 50 mg 11/28/19 09:14 11/28/19 10:09 Ketalar TRISHA 11/28/19 09:15 Not Given ONETIME ONE Ketamine HCl 50 mg 11/28/19 10:15 11/28/19 10:09 Ketalar TRISHA 11/28/19 10:16 50 mg ONETIME ONE Administration Ketorolac Tromethamine 60 mg 11/28/19 09:16 11/28/19 09:21 Toradol IM 11/28/19 09:17 60 mg ONETIME ONE Administration Departure - Departure Time of Disposition: 10:49 Disposition: Home, Self-Care 01 Condition: Fair Clinical Impression: Dry socket - Discharge Information Instructions: Dental Dry Socket, [id number] Referrals: Art Goldberg MD [Primary Care Provider] - Forms: ED Department Discharge Additional Instructions: Please use your Percocet as prescribed, also add ibuprofen to your pain control 600 mg 4 times a day, follow-up with your dentist in the morning call or return to the emergency department worsening of symptoms Sepsis Event Note - Evaluation Sepsis Screening Result: No Definite Risk - Focused Exam Vital Signs: Vital Signs Temp Pulse Resp BP Pulse Ox 11/28/19 08:32 95.4 F 69 20 166/96 H 98 Date Exam was Performed: 11/28/19 Time Exam was Performed: 10:48 - Assessment/Plan Plan: Assessment Acuity = acute Site and laterality = dry socket Etiology = secondary to dental extraction Manifestations = pain Location of injury = Home Lab values = none Plan Initially received 1 mg Dilaudid IM which provided no pain relief, next received 60 mg Toradol which provided some pain relief then pain was able to get under control with 50 mcg fentanyl intranasally with 50 mg ketamine intranasally. Plan is to continue on his Percocet and penicillin he did pack his socket he will follow-up with his dentist tomorrow morning This note was dictated using [employer] voice recognition software please call with any questions on syntax or grammar.
[2019-11-28] MEDS ORDERED: fentaNYL 100 MCG/2 ML SDV NASBOTH ONE (09:14)
[2019-11-28] MEDS ORDERED: Ketamine 500 MG/5 ML MDV NAS ONE ×2 (09:14→10:15)
[2019-11-28] MEDS ORDERED: Ketorolac 60 MG/2 ML SDV IM ONE (09:16)
== END 2019-11-28 10:58 | disposition home or self-care (01) ==
LOC: JP.ED 08:18
DX: M27.3 Alveolitis of jaws (principal); I10 Essential (primary) hypertension; Z98.818 Other dental procedure status
CPT/HCPCS: 96372; 99283; J1170; J1885; J3010

== ENCOUNTER 2020-09-24 19:50 | Emergency (ER) | payer BC ==
[2020-09-24] MEDS ORDERED: Aspirin 81 MG Tab.Chew PO ONE (20:13)
--- NOTE | 2020-09-24 20:36 | EDM.PDOC ---
ED HPI GENERAL MEDICAL PROBLEM - General Chief Complaint: Chest Pain Stated Complaint: CHEST PAIN Time Seen by Provider: 09/24/20 20:31 Source of Information: Reports: Patient History Limitations: Reports: No Limitations - History of Present Illness INITIAL COMMENTS - FREE TEXT/NARRATIVE: pt has been having chest pain on and off for several weeks. He got up with pain this am and it did not go away. He Has been slightly sob. He has a tomi strong family history of cardiac problems. Onset: Gradual, Other (pt has had more consistent pain today. ) Duration: Hour(s): Location: Reports: Chest Associated Symptoms: Reports: Chest Pain, Shortness of Breath chest Pain Score (Numeric/FACES): 3 - Related Data Allergies Allergy/AdvReac Type Severity Reaction Status Date / Time No Known Allergies Allergy Verified 09/24/20 20:01 Home Meds: Home Meds Metaxalone 800 mg PO TID 01/19/19 [History] diazePAM [Valium] 10 mg PO Q4H PRN 01/19/19 [History] Pantoprazole [ProTONIX Granules] 40 mg PO BID #120 cap 01/21/19 [Rx] oxyCODONE HCl [Oxycodone HCl] 10 mg PO TID PRN 09/24/20 [History] Past Medical History HEENT History: Reports: Impaired Vision Cardiovascular History: Reports: Hypertension Respiratory History: Reports: Sleep Apnea Gastrointestinal History: Reports: GERD, PUD Musculoskeletal History: Reports: Arthritis Other Musculoskeletal History: DJD Neurological History: Reports: Migraines Endocrine/Metabolic History: Reports: Obesity/BMI 30+ - Infectious Disease History Infectious Disease History: Reports: Chicken Pox, Measles, Mumps - Past Surgical History GI Surgical History: Reports: Bariatric Procedure, Cholecystectomy Other GI Surgeries/Procedures: RNY 20 years ago Neurological Surgical History: Reports: Lumbar Spine, Other (See Below) Other Neurological Surgeries/Procedures: disc removal Musculoskeletal Surgical History: Reports: Other (See Below) Other Musculoskeletal Surgeries/Procedures:: Back surgery Social & Family History - Tobacco Use Tobacco Use Status *Q: Never Tobacco User - Caffeine Use Caffeine Use: Reports: Tea - Alcohol Use Days Per Week of Alcohol Use: 7 Number of Drinks Per Day: 5 Total Drinks Per Week: 35 - Recreational Drug Use Recreational Drug Use: No ED ROS GENERAL - Review of Systems Review Of Systems: See Below Constitutional: Reports: No Symptoms HEENT: Reports: No Symptoms Respiratory: Reports: Shortness of Breath Cardiovascular: Reports: Chest Pain, Other (pt has elevated bp.) Endocrine: Reports: No Symptoms GI/Abdominal: Reports: No Symptoms : Reports: No Symptoms Musculoskeletal: Reports: No Symptoms Skin: Reports: No Symptoms ED EXAM, GENERAL - Physical Exam Exam: See Below Free Text/Narrative:: pt arrived with pain in his left chest. He does not hurt when he takes a deep breath. He is mildly sob. He comes from a history of cardiac disease at a early age. Exam Limited By: No Limitations General Appearance: Alert, Anxious, Mild Distress Ears: Normal TMs Nose: Normal Inspection Throat/Mouth: Normal Inspection Head: Atraumatic Neck: Normal Inspection Respiratory/Chest: No Respiratory Distress Cardiovascular: Regular Rate, Rhythm GI/Abdominal: Soft, Non-Tender (Male) Exam: Deferred Rectal (Males) Exam: Deferred Back Exam: Normal Inspection Extremities: Normal Inspection Neurological: Alert, Oriented, Normal Cognition Psychiatric: Normal Mood Course - Vital Signs Last Recorded V/S: Last Vital Signs Temp 36.4 C 09/24/20 20:10 Pulse 94 09/24/20 20:52 Resp 15 09/24/20 20:52 BP 146/94 H 09/24/20 21:36 Pulse Ox 94 L 09/24/20 20:52 - Orders/Labs/Meds Orders: Active Orders 24 hr Category Date Time Status EKG Documentation Completion [RC] ASDIRECTED Care 09/24/20 20:41 Active Chest 1V Frontal [CR] Stat Exams 09/24/20 20:12 Taken UA W/MICROSCOPIC [URIN] Urgent Lab 09/24/20 21:37 Ordered Nitroglycerin [Nitrostat] Med 09/24/20 20:36 Active 0.4 mg SL Q5M PRN EKG 12 Lead [EK] Routine Ther 09/24/20 20:41 Ordered Medication Orders Nitroglycerin (Nitrostat) 0.4 mg SL Q5M PRN PRN Reason: Chest Pain Last Admin: 09/24/20 21:18 Dose: 0.4 mg Documented by: Admin: 09/24/20 20:43 Dose: 0.4 mg Documented by: PATI Labs: Laboratory Tests 09/24/20 09/24/20 09/24/20 Range/Units 20:19 20:19 20:19 WBC 6.5 (4.5-11.0) K/uL RBC 4.75 (4.30-5.90) M/uL Hgb 14.6 D (12.0-15.0) g/dL Hct 44.6 (40.0-54.0) % MCV 94 (80-98) fL MCH 31 (27-31) pg MCHC 33 (32-36) % Plt Count 210 (150-400) K/uL Neut % (Auto) 49 (36-66) % Lymph % (Auto) 36 (24-44) % [place] % (Auto) 9 H (2-6) % Eos % (Auto) 6 H (2-4) % Baso % (Auto) 1 (0-1) % D-Dimer, Quantitative (0.0-500.0) ng/mL Sodium 138 L (140-148) mmol/L Potassium 5.3 H (3.6-5.2) mmol/L Chloride 102 (100-108) mmol/L Carbon Dioxide 25 (21-32) mmol/L Anion Gap 16.3 H (5.0-14.0) mmol/L BUN 18 D (7-18) mg/dL Creatinine 1.1 (0.8-1.3) mg/dL Est Cr Clr Drug Dosing 86.76 mL/min Estimated GFR (MDRD) > 60 (>60) Glucose 99 (74-106) mg/dL Calcium 8.7 (8.5-10.1) mg/dL Total Bilirubin 0.3 (0.2-1.0) mg/dL AST 40 H D (15-37) U/L ALT 43 D (12-78) U/L Alkaline Phosphatase 73 (46-116) U/L Troponin I < 0.017 (0.000-0.056) ng/mL Total Protein 6.9 (6.4-8.2) g/dL Albumin 3.6 (3.4-5.0) g/dL Globulin 3.3 (2.3-3.5) g/dL Albumin/Globulin Ratio 1.1 L (1.2-2.2) 09/24/20 Range/Units 20:53 WBC (4.5-11.0) K/uL RBC (4.30-5.90) M/uL Hgb (12.0-15.0) g/dL Hct (40.0-54.0) % MCV (80-98) fL MCH (27-31) pg MCHC (32-36) % Plt Count (150-400) K/uL Neut % (Auto) (36-66) % Lymph % (Auto) (24-44) % [place] % (Auto) (2-6) % Eos % (Auto) (2-4) % Baso % (Auto) (0-1) % D-Dimer, Quantitative 369.64 (0.0-500.0) ng/mL Sodium (140-148) mmol/L Potassium (3.6-5.2) mmol/L Chloride (100-108) mmol/L Carbon Dioxide (21-32) mmol/L Anion Gap (5.0-14.0) mmol/L BUN (7-18) mg/dL Creatinine (0.8-1.3) mg/dL Est Cr Clr Drug Dosing mL/min Estimated GFR (MDRD) (>60) Glucose (74-106) mg/dL Calcium (8.5-10.1) mg/dL Total Bilirubin (0.2-1.0) mg/dL AST (15-37) U/L ALT (12-78) U/L Alkaline Phosphatase (46-116) U/L Troponin I (0.000-0.056) ng/mL Total Protein (6.4-8.2) g/dL Albumin (3.4-5.0) g/dL Globulin (2.3-3.5) g/dL Albumin/Globulin Ratio (1.2-2.2) Meds: Medications Generic Name Dose Route Start Last Admin Trade Name Freq PRN Reason Stop Dose Admin Nitroglycerin 0.4 mg 09/24/20 20:36 09/24/20 21:18 Nitrostat SL 0.4 mg Q5M PRN Administration Chest Pain Discontinued Medications Generic Name Dose Route Start Last Admin Trade Name Freq PRN Reason Stop Dose Admin Aspirin 324 mg 09/24/20 20:13 09/24/20 20:20 Aspirin PO 09/24/20 20:14 324 mg ONETIME ONE Administration - Re-Assessments/Exams Free Text/Narrative Re-Assessment/Exam: 09/24/20 20:48 pt has a strong family history . His choletrol and triglycerides have been good. Pt has a normal trop. 09/24/20 20:51 Departure - Departure Time of Disposition: 21:53 Disposition: Home, Self-Care 01 Condition: Fair Clinical Impression: Atypical chest pain Referrals: Art Goldberg MD [Primary Care Provider] - Forms: ED Department Discharge Care Plan Goals: get bp rechecked, rest no work for the next 2 days, rtc if pain should get worse. rtc for a exercise cardiolyte. Sepsis Event Note (ED) - Evaluation Sepsis Screening Result: No Definite Risk - Focused Exam Vital Signs: Vital Signs Temp Pulse Resp BP BP Pulse Ox 09/24/20 21:36 146/94 H 09/24/20 21:18 142/92 H 09/24/20 20:52 94 15 148/88 H 94 L 09/24/20 20:43 165/103 H 09/24/20 20:10 36.4 C 89 17 184/120 H 95 09/24/20 20:08 36.4 C 89 17 184/120 H 95 - My Orders Last 24 Hours: My Active Orders 09/24/20 20:12 Chest 1V Frontal [CR] Stat 09/24/20 20:36 Nitroglycerin [Nitrostat] 0.4 mg SL Q5M PRN 09/24/20 20:41 EKG Documentation Completion [RC] ASDIRECTED EKG 12 Lead [EK] Routine 09/24/20 21:37 UA W/MICROSCOPIC [URIN] Urgent - Assessment/Plan Last 24 Hours: My Active Orders 09/24/20 20:12 Chest 1V Frontal [CR] Stat 09/24/20 20:36 Nitroglycerin [Nitrostat] 0.4 mg SL Q5M PRN 09/24/20 20:41 EKG Documentation Completion [RC] ASDIRECTED EKG 12 Lead [EK] Routine 09/24/20 21:37 UA W/MICROSCOPIC [URIN] Urgent
[2020-09-24] MEDS: Nitroglycerin 0.4 MG Tab.SL SL PRN ×2 (20:43→21:18)
[2020-09-24 20:54] VITALS: PULSE 94
[2020-09-24 21:38] VITALS: BP 146/94
--- NOTE | 2020-09-25 09:56 | CR ---
CHEST: Portable 09/24/2020 at 8:55 PM CLINICAL HISTORY:Chest pain COMPARISON:2011 FINDINGS: There is less than optimal aspiration. This exaggerates the basal lung markings. There is some patchy density at the left lung base. Pulmonary vascularity is normal. Heart size is normal. IMPRESSION: Poor inspiration exaggerates the lung markings Patchy density in the left lower lobe could represent some patchy atelectasis or minimal infiltrate. The upright two-view chest recommended when patient's condition allows
== END 2020-09-24 22:25 | disposition home or self-care (01) ==
LOC: JP.ED 19:50
DX: R07.89 Other chest pain (principal); R06.02 Shortness of breath; I10 Essential (primary) hypertension; E66.9 Obesity, unspecified; K21.9 Gastro-esophageal reflux disease without esophagitis; Z90.49 Acquired absence of other specified parts of digestive tract; Z79.899 Other long term (current) drug therapy
CPT/HCPCS: 36415; 71045; 80053; 81001; 84484; 85025; 85379; 93005; 93010; 99285; A9270

== ENCOUNTER 2021-04-01 12:52 | Emergency (ER) | payer BC ==
[2021-04-01] MEDS ORDERED: Sodium Chloride 0.9% 10 ML Syringe FLUSH PRN (12:54)
[2021-04-01] MEDS ORDERED: Nitroglycerin 0.4 MG Tab.SL ONE (12:58)
[2021-04-01] MEDS ORDERED: Aspirin 81 MG Tab.Chew ONE (12:58)
[2021-04-01] MEDS ORDERED: Ondansetron 4 MG/2 ML SDV IVPUSH ONE (13:04)
[2021-04-01] MEDS ORDERED: Ondansetron 4 MG/2 ML SDV ONE (13:04)
[2021-04-01] MEDS ORDERED: Morphine 2 MG/ML SYRINGE IVPUSH ONE ×2 (13:13)
--- NOTE | 2021-04-01 13:14 | EDM.PDOC ---
ED HPI GENERAL MEDICAL PROBLEM - General Chief Complaint: Chest Pain Stated Complaint: CHEST PAIN SINCE 10 AM Time Seen by Provider: 04/01/21 13:14 Source of Information: Reports: Patient, Family History Limitations: Reports: No Limitations - History of Present Illness INITIAL COMMENTS - FREE TEXT/NARRATIVE: Clay presents today with complaints of chest pain that started this morning at 1000. He took one nitro SL at home without any pain relief. He also complains of nausea with his pain. He states he had just finished eating and developed the pain. He reports mid-sternal chest pain radiating to the left chest to the left arm causing numbness to his left arm. He reports medically managed coronary artery disease. He states he was informed he is not a surgical/cardiac stent candidate due to his significant small vessel disease. History of SC x 2 in past He denies fever, chills, fever, change in bowel/bladder, SOB, difficulty breathing, syncope, dizziness, injury or trauma. - Related Data Allergies Allergy/AdvReac Type Severity Reaction Status Date / Time No Known Allergies Allergy Verified 04/01/21 13:07 Home Meds: Home Meds Metaxalone 800 mg PO TID 01/19/19 [History] diazePAM [Valium] 10 mg PO Q4H PRN 01/19/19 [History] Pantoprazole [ProTONIX Granules] 40 mg PO BID #120 cap 01/21/19 [Rx] oxyCODONE HCl [Oxycodone HCl] 10 mg PO TID PRN 09/24/20 [History] Gabapentin [Neurontin] 300 mg PO TID 09/27/20 [History] Isosorbide Mononitrate [Imdur] 30 mg PO DAILY 04/01/21 [History] amLODIPine [Norvasc] 5 mg PO DAILY 04/01/21 [History] diazePAM [Valium] 10 mg PO ASDIRECTED 04/01/21 [History] Past Medical History HEENT History: Reports: Impaired Vision Cardiovascular History: Reports: Hypertension Respiratory History: Reports: Sleep Apnea Gastrointestinal History: Reports: GERD, PUD Musculoskeletal History: Reports: Arthritis Other Musculoskeletal History: DJD Neurological History: Reports: Migraines Endocrine/Metabolic History: Reports: Obesity/BMI 30+ - Infectious Disease History Infectious Disease History: Reports: Chicken Pox, Measles, Mumps - Past Surgical History GI Surgical History: Reports: Bariatric Procedure, Cholecystectomy Other GI Surgeries/Procedures: RNY 20 years ago Neurological Surgical History: Reports: Lumbar Spine, Other (See Below) Other Neurological Surgeries/Procedures: disc removal Musculoskeletal Surgical History: Reports: Other (See Below) Other Musculoskeletal Surgeries/Procedures:: Back surgery Social & Family History - Caffeine Use Caffeine Use: Reports: Tea ED ROS GENERAL - Review of Systems Review Of Systems: See Below Constitutional: Reports: Weakness. Denies: Fever, Chills, Malaise HEENT: Reports: No Symptoms Respiratory: Reports: No Symptoms Cardiovascular: Reports: Chest Pain (radiation to left arm with left arm numbness) Endocrine: Reports: No Symptoms GI/Abdominal: Reports: Nausea, Vomiting : Reports: No Symptoms Musculoskeletal: Reports: Other (chronic back pain) Skin: Reports: Other (diaphoresis) Neurological: Reports: No Symptoms Psychiatric: Reports: No Symptoms Hematologic/Lymphatic: Reports: No Symptoms Immunologic: Reports: No Symptoms ED EXAM, GENERAL - Physical Exam Exam: See Below Exam Limited By: No Limitations General Appearance: Alert, Moderate Distress Eye Exam: Bilateral Eye: Normal Inspection, PERRL Throat/Mouth: Normal Inspection, Normal Lips, Normal Oropharynx, Normal Voice, No Airway Compromise Head: Atraumatic, Normocephalic Neck: Normal Inspection, Supple, Non-Tender, Full Range of Motion. No: Lymphadenopathy (R), Lymphadenopathy (L) Respiratory/Chest: No Respiratory Distress, Lungs Clear, Normal Breath Sounds, No Accessory Muscle Use, Chest Non-Tender, Other (Noted hypoxia with resting to 87%) Cardiovascular: Normal Peripheral Pulses, No Edema, No Gallop, No Murmur, No Rub, Other (tachycardic at presentation to 120bpm, after morphine HR 84bpm) Peripheral Pulses: 2+: Radial (L), Radial (R), Dorsalis Pedis (L), Dorsalis Pedis (R) GI/Abdominal: Normal Bowel Sounds, Soft, Non-Tender, No Organomegaly, No Distention, No Mass. No: Distended, Guarding, Rigid, Rebound, Mass Back Exam: Decreased Range of Motion (due to chronic pain, no new injury/trauma ). No: CVA Tenderness (R), CVA Tenderness (L), Muscle Spasm Extremities: Normal Inspection, Normal Range of Motion, Non-Tender, No Pedal Edema, Normal Capillary Refill Neurological: Alert, Oriented, CN II-XII Intact, Normal Cognition, Normal Gait, Normal Reflexes, No Motor/Sensory Deficits Psychiatric: Normal Affect, Normal Mood Skin Exam: Warm, Intact, Normal Color, No Rash, Diaphoretic (at presentation) #1 Interpretation EKG Date: 04/01/21 Time: 12:56 Rhythm: NSR Rate (Beats/Min): 106 [place]ley: Normal P-Wave: Present QRS: Normal ST-T: Normal QT: Normal EKG Interpretation Comments: Normal sinus without ST changes or ectopy. Course - Vital Signs Last Recorded V/S: Last Vital Signs Temp Pulse 78 04/01/21 15:08 Resp 18 04/01/21 15:08 BP 86/48 L 04/01/21 15:08 Pulse Ox 98 04/01/21 15:08 - Orders/Labs/Meds Orders: Active Orders 24 hr Category Date Time Status Chest 1V Frontal [CR] Stat Exams 04/01/21 13:03 Taken Saline Lock Insert [OM.PC] Routine Oth 04/01/21 12:54 Ordered EKG 12 Lead [EK] Routine Ther 04/01/21 12:54 Ordered Labs: Laboratory Tests 04/01/21 04/01/21 04/01/21 Range/Units 13:03 13:03 14:40 WBC 5.3 (4.5-11.0) K/uL RBC 4.75 (4.30-5.90) M/uL Hgb 14.8 (12.0-15.0) g/dL Hct 44.2 (40.0-54.0) % MCV 93 (80-98) fL MCH 31 (27-31) pg MCHC 34 (32-36) % Plt Count 270 (150-400) K/uL Neut % (Auto) 46 (36-66) % Lymph % (Auto) 35 (24-44) % Ashe % (Auto) 7 H (2-6) % Eos % (Auto) 10 H (2-4) % Baso % (Auto) 1 (0-1) % Sodium 139 L (140-148) mmol/L Potassium 4.6 (3.6-5.2) mmol/L Chloride 102 (100-108) mmol/L Carbon Dioxide 23 (21-32) mmol/L Anion Gap 18.6 H (5.0-14.0) mmol/L BUN 11 (7-18) mg/dL Creatinine 1.0 (0.8-1.3) mg/dL Est Cr Clr Drug Dosing 95.44 mL/min Estimated GFR (MDRD) > 60 (>60) Glucose 163 H (74-106) mg/dL Calcium 8.9 (8.5-10.1) mg/dL Total Bilirubin 0.4 (0.2-1.0) mg/dL AST 26 (15-37) U/L ALT 34 (12-78) U/L Alkaline Phosphatase 70 (46-116) U/L Troponin I < 0.017 (0.000-0.056) ng/mL NT-Pro-B Natriuret Pep 23 (5-125) pg/mL Total Protein 7.3 (6.4-8.2) g/dL Albumin 4.0 (3.4-5.0) g/dL Globulin 3.3 (2.3-3.5) g/dL Albumin/Globulin Ratio 1.2 (1.2-2.2) SARS CoV-2 RNA Rapid MARY Negative Patient lab reviewed with him and his . Brand Executive Dr. Janina Lunsford notified of patient status, we will transfer for chest pain, hypoxia with rest. Known sleep apnea. Patient and his in agreement with plan. Meds: Medications Discontinued Medications Generic Name Dose Route Start Last Admin Trade Name Zeusq PRN Reason Stop Dose Admin Aspirin Confirm 04/01/21 12:58 Aspirin 81 Mg Tab.Chew Administered 04/01/21 12:59 Dose 324 mg .ROUTE .STK-MED ONE Aspirin 324 mg 04/01/21 13:30 04/01/21 13:33 Aspirin 81 Mg Tab.Chew PO 04/01/21 13:31 324 mg ONETIME ONE Administration Famotidine 20 mg 04/01/21 13:39 04/01/21 14:33 Famotidine 20 Mg/2 Ml Sdv IVPUSH 04/01/21 13:40 20 mg ONETIME ONE Administration Sodium Chloride 1,000 mls @ 125 mls/hr 04/01/21 13:15 04/01/21 13:14 Normal Saline IV 125 mls/hr ASDIRECTED GREGORY Administration Morphine Sulfate 2 mg 04/01/21 13:13 Morphine 2 Mg/Ml Syringe IVPUSH 04/01/21 13:14 ONETIME ONE Morphine Sulfate 2 mg 04/01/21 13:13 04/01/21 13:16 Morphine 2 Mg/Ml Syringe IVPUSH 04/01/21 13:14 2 mg ONETIME ONE Administration Nitroglycerin Confirm 04/01/21 12:58 Nitroglycerin 0.4 Mg Tab.Sl Administered 04/01/21 12:59 Dose 0.4 mg .ROUTE .STK-MED ONE Nitroglycerin 0.4 mg 04/01/21 13:30 04/01/21 13:34 Nitroglycerin 0.4 Mg Tab.Sl SL 04/01/21 13:31 0.4 mg ONETIME ONE Administration Ondansetron HCl 4 mg 04/01/21 13:04 04/01/21 13:13 Ondansetron 4 Mg/2 Ml Sdv IVPUSH 04/01/21 13:05 4 mg ONETIME ONE Administration Ondansetron HCl Confirm 04/01/21 13:04 Ondansetron 4 Mg/2 Ml Sdv Administered 04/01/21 13:05 Dose 4 mg .ROUTE .STK-MED ONE Sodium Chloride 10 ml 04/01/21 12:54 Sodium Chloride 0.9% 10 Ml Syringe FLUSH ASDIRECTED PRN Keep Vein Open - Radiology Interpretation Free Text/Narrative:: Chest x-ray reviewed, wet read, no acute findings noted. Radiologist read pending. - Re-Assessments/Exams Free Text/Narrative Re-Assessment/Exam: 04/01/21 13:14 Chest pain not improved after nitro SL x 1. Will provide Morphine 2mgIV 04/01/21 13:37 Pain much better, normal respirations, HR 86bpm, pain came down to 3/10. Free Text/Narrative Re-Assessment/Exam: 04/01/21 14:[address] [facility], patient accepted for transfer. Patient and his in agreement with plan. Patient transfer via EMS. Departure - Departure Time of Disposition: 14:21 Disposition: DC/Tfer to [facility] 02 Reason for Transfer *Q: Other (unstable angina) Condition: Fair Clinical Impression: Chest pain, Unstable angina Referrals: Art Goldberg MD [Primary Care Provider] - Forms: ED Department Discharge Additional Instructions: Patient transfer to [facility] for chest pain, hypoxia with rest/sleep Sepsis Event Note (ED) - Focused Exam Vital Signs: Vital Signs Pulse Resp BP BP Pulse Ox 04/01/21 15:08 78 18 86/48 L 98 04/01/21 14:20 80 16 118/74 98 04/01/21 14:05 82 14 122/84 98 04/01/21 13:50 81 17 106/72 89 L 04/01/21 13:35 94 9 L 106/73 94 L 04/01/21 13:34 128/83 04/01/21 13:20 81 14 103/68 99 04/01/21 13:10 99 12 102/65 99 04/01/21 12:54 113 H 17 123/83 100 - My Orders Last 24 Hours: My Active Orders 04/01/21 13:03 Chest 1V Frontal [CR] Stat - Assessment/Plan Last 24 Hours: My Active Orders 04/01/21 13:03 Chest 1V Frontal [CR] Stat Assessment:: Chest pain, hypoxia with rest/sleep, unstable angina Transfer to [facility], acceptance per Dr. Conde ER for chest pain, history of SC x 2 Plan: Patient transfer to [facility], emergency room for further care, cardiology services. No bed available in [place].
[2021-04-01] MEDS ORDERED: Sodium Chloride 0.9% 1,000 ML IV SCH (13:15)
[2021-04-01] MEDS ORDERED: Nitroglycerin 0.4 MG Tab.SL SL ONE (13:30)
[2021-04-01] MEDS ORDERED: Aspirin 81 MG Tab.Chew PO ONE (13:30)
[2021-04-01] MEDS ORDERED: Famotidine 20 MG/2 ML SDV IVPUSH ONE (13:39)
[2021-04-01 15:08] VITALS: BP 86/48; PULSE 78
--- NOTE | 2021-04-02 10:02 | CRLCR ---
HISTORY: Chest pain. TECHNIQUE: One view of the chest. COMPARISON: 09/24/2020. FINDINGS: Low lung volumes. There is no acute lung infiltrate or pulmonary edema. No pneumothorax or pleural effusion. Cardiac size and pulmonary vasculature are within normal limits. IMPRESSION: No acute disease. Dictated by Sixto Parsons MD @ 04/02/2021 10:01:49 AM Dictated by: Sixto Parsons MD @ 04/02/2021 10:01:54 (Electronically Signed)
== END 2021-04-01 15:28 ==
LOC: JP.ED 12:52
DX: I20.0 Unstable angina (principal); I10 Essential (primary) hypertension; K21.9 Gastro-esophageal reflux disease without esophagitis; E66.9 Obesity, unspecified; Z68.41 Body mass index [BMI] 40.0-44.9, adult; Z79.899 Other long term (current) drug therapy
CPT/HCPCS: 36415; 71045; 80053; 83880; 84484; 85025; 87635; 93005; 96374; 96375; 99285; A9270; J2270; J2405; J3490; J7030; 93010; U0002

== ENCOUNTER 2023-02-14 07:05 | Day surgery (SDC) | payer BC ==
[2023-02-14] MEDS ORDERED: Sodium Chloride 0.9% 1,000 ML IV SCH (07:30)
[2023-02-14] MEDS ORDERED: Midazolam 1 MG/ML 2 ML SDV ONE (07:39)
[2023-02-14] MEDS ORDERED: fentaNYL 50 MCG/ML SDV ONE (07:39)
[2023-02-14] MEDS ORDERED: Propofol 200 MG/20 ML SDV ONE ×2 (07:40→08:42)
[2023-02-14 09:45] VITALS: BP 108/73; PULSE 61
== END 2023-02-14 09:49 | disposition home or self-care (01) ==
LOC: JP.SDS 07:05
PROVIDERS: ATTEND Surgery
DX: Z12.11 Encounter for screening for malignant neoplasm of colon (principal); D12.3 Benign neoplasm of transverse colon; Q43.8 Other specified congenital malformations of intestine; I25.10 Atherosclerotic heart disease of native coronary artery without angina pectoris; I10 Essential (primary) hypertension; G47.33 Obstructive sleep apnea (adult) (pediatric); E66.9 Obesity, unspecified; Z68.42 Body mass index [BMI] 45.0-49.9, adult
CPT/HCPCS: 45380; 88305; J2250; J2704; J3010; J7030

== ENCOUNTER 2024-09-04 07:31 | Emergency (ER) | payer BC ==
[2024-09-04] MEDS ORDERED: Morphine 4 MG/ML Syringe IVPUSH PRN (07:43)
[2024-09-04 07:49] LABS: BASOPHILS ABSOLUTE AUTO 0.05 K/uL (0.00-0.10); BASOPHILS PERCENT AUTO 0.7 % (0.1-1.3); EOSINOPHILS ABSOLUTE AUTO 0.61 K/uL (0.00-0.40); EOSINOPHILS PERCENT AUTO 8.6 % (0.0-5.4); HEMATOCRIT 40.8 % (38.4-49.7); HEMOGLOBIN 14.1 g/dL (12.9-16.9); IMMATURE GRAN ABSOLUTE AUTO 0.03 K/uL (0.00-0.23); IMMATURE GRAN PERCENT AUTO 0.4 % (0.0-0.7); LYMPHOCYTES ABSOLUTE AUTO 2.97 K/uL (0.8-3.3); LYMPHOCYTES PERCENT AUTO 41.9 % (11.4-47.7); MEAN CORPUSCULAR HEMOGLOBIN 34.9 pg (31.6-35.5); MEAN CORPUSCULAR HGB CONC 34.6 g/dL (31.6-35.5); MONOCYTES ABSOLUTE AUTO 0.66 K/uL (0.20-0.90); MONOCYTES PERCENT AUTO 9.3 % (3.3-12.6); NEUTROPHILS ABSOLUTE AUTO 2.77 K/uL (1.0-7.6); NEUTROPHILS PERCENT AUTO 39.1 % (40.0-78.1); PLATELET COUNT,PLT 222 K/uL (130-375); RED BLOOD CELL COUNT 4.04 M/uL (4.14-5.76); WHITE BLOOD CELL COUNT,WBC 7.1 K/uL (3.2-11.0)
[2024-09-04] MEDS: Aspirin 81 MG Tab.Chew PO ONE (07:50)
[2024-09-04] MEDS: Nitroglycerin 0.4 MG Tab.SL SL PRN (07:50)
[2024-09-04] MEDS: Sodium Chloride 0.9% 10 ML Syringe FLUSH PRN (07:51)
[2024-09-04 08:04] LABS: ANION GAP 14.1 mmol/L (5.0-14.0); CALCIUM 9.1 mg/dL (8.5-10.1); CREATININE 0.8 mg/dL (0.8-1.3); EST CRCL DRUG DOSING (CG) 110.47 mL/min; POTASSIUM,K 4.1 mmol/L (3.6-5.2); TROPONIN I HIGH SENSITIVITY 7.2 pg/mL (<=60.3)
[2024-09-04] MEDS: Ketorolac 30 MG/ML SDV IVPUSH ONE (08:16)
[2024-09-04] MEDS: Sodium Chloride 0.9% 1,000 ML IV SCH (08:18)
[2024-09-04 10:22] VITALS: BP 111/82; PULSE 71
== END 2024-09-04 10:55 | disposition home or self-care (01) ==
LOC: JP.ED 07:31
DX: R07.89 Other chest pain (principal); I10 Essential (primary) hypertension; I25.10 Atherosclerotic heart disease of native coronary artery without angina pectoris; E66.9 Obesity, unspecified; Z68.42 Body mass index [BMI] 45.0-49.9, adult; Z86.16 Personal history of COVID-19; Z79.899 Other long term (current) drug therapy; Z90.49 Acquired absence of other specified parts of digestive tract; Z79.82 Long term (current) use of aspirin
CPT/HCPCS: 36415; 71045; 80048; 84484; 85025; 93005; 93010; 99284; 99285; A9270; J3490; J7030; J1885

== ENCOUNTER 2025-01-21 13:13 | Emergency (ER) | payer BC ==
[2025-01-21] MEDS: Albuterol/Ipratropium 3.0-0.5 MG/3 ML Neb Soln NEB ONE (13:58)
[2025-01-21] MEDS: Magnesium Sulf/Wat 2 GM/50 mL 2 GM in Premix Bag 1 BAG IV ONE (13:58)
[2025-01-21 14:01] LABS: BASOPHILS ABSOLUTE AUTO 0.04 K/uL (0.00-0.10); BASOPHILS PERCENT AUTO 0.7 % (0.1-1.3); EOSINOPHILS ABSOLUTE AUTO 0.82 K/uL (0.00-0.40); EOSINOPHILS PERCENT AUTO 14.4 % (0.0-5.4); HEMATOCRIT 43.4 % (38.4-49.7); HEMOGLOBIN 15.1 g/dL (12.9-16.9); IMMATURE GRAN PERCENT AUTO 0.2 % (0.0-0.7); LYMPHOCYTES ABSOLUTE AUTO 1.61 K/uL (0.8-3.3); LYMPHOCYTES PERCENT AUTO 28.2 % (11.4-47.7); MEAN CORPUSCULAR HEMOGLOBIN 33.6 pg (31.6-35.5); MEAN CORPUSCULAR HGB CONC 34.8 g/dL (31.6-35.5); MEAN CORPUSCULAR VOLUME 96.4 fL (81.4-99.0); MONOCYTES ABSOLUTE AUTO 0.69 K/uL (0.20-0.90); MONOCYTES PERCENT AUTO 12.1 % (3.3-12.6); NEUTROPHILS ABSOLUTE AUTO 2.53 K/uL (1.0-7.6); NEUTROPHILS PERCENT AUTO 44.4 % (40.0-78.1); PLATELET COUNT,PLT 221 K/uL (130-375); WHITE BLOOD CELL COUNT,WBC 5.7 K/uL (3.2-11.0)
[2025-01-21 14:02] LABS: IMMATURE GRAN ABSOLUTE AUTO 0.01 K/uL (0.00-0.23)
[2025-01-21 14:23] LABS: A/G RATIO 1.1 (1.2-2.2); ALANINE AMINOTRANSFERASE,ALT 49 U/L (12-78); ALBUMIN 3.9 g/dL (3.4-5.0); ALKALINE PHOSPHATASE 76 U/L (46-116); ANION GAP 10.4 mmol/L (5.0-14.0); ASPARTATE AMNIOTRANSFERASE,AST 32 U/L (15-37); BILIRUBIN TOTAL 0.5 mg/dL (0.2-1.0); BLOOD UREA NITROGEN,BUN 7 mg/dL (7-18); CALCIUM 9.3 mg/dL (8.5-10.1); CARBON DIOXIDE,CO2 27 mmol/L (21-32); CHLORIDE,CL 101 mmol/L (100-108); CREATININE 0.8 mg/dL (0.8-1.3); EST CRCL DRUG DOSING (CG) 110.47 mL/min; ESTIMATED GFR 103 mL/min (>60); GLUCOSE RANDOM 134 mg/dL (74-106); POTASSIUM,K 4.4 mmol/L (3.6-5.2); PROTEIN TOTAL,TP 7.6 g/dL (6.4-8.2); SODIUM,NA 134 mmol/L (140-148)
[2025-01-21 15:47] LABS: APPEARANCE,URINE CLEAR (CLEAR); BILIRUBIN,URINE NEGATIVE (NEGATIVE); COLOR,URINE YELLOW (YELLOW); GLUCOSE,URINE NEGATIVE (NEGATIVE); KETONES,URINE NEGATIVE (NEGATIVE); LEUKOCYTE ESTERASE,URINE NEGATIVE (NEGATIVE); NITRITE,URINE NEGATIVE (NEGATIVE); OCCULT BLOOD,URINE NEGATIVE (NEGATIVE); PH,URINE 6.5 (5.0-8.0); PROTEIN,URINE TRACE mg/dL (NEGATIVE)
[2025-01-21 15:55] LABS: EPITHELIAL CELLS,URINE NOT SEEN; RBC,URINE 0-5 (0-5); WBC,URINE 0-5 (0-5)
[2025-01-21 15:56] LABS: AMORPHOUS SEDIMENT,URINE FEW; BACTERIA,URINE NOT SEEN; MUCUS,URINE MANY
[2025-01-21 16:13] VITALS: BP 120/63; PULSE 69
== END 2025-01-21 16:14 | disposition home or self-care (01) ==
LOC: JP.ED 13:13
DX: J45.901 Unspecified asthma with (acute) exacerbation (principal); B34.9 Viral infection, unspecified; I25.10 Atherosclerotic heart disease of native coronary artery without angina pectoris; E78.00 Pure hypercholesterolemia, unspecified; I10 Essential (primary) hypertension; I25.2 Old myocardial infarction; Z86.16 Personal history of COVID-19; Z79.82 Long term (current) use of aspirin; Z79.899 Other long term (current) drug therapy
CPT/HCPCS: 36415; 71046; 80053; 81001; 83605; 85025; 87428; 94640; 96365; 96366; 99285; J3475; J7620; A9270-GY